=== PATIENT | female | born 1995 | race Caucasian/White ===

== ENCOUNTER 2016-04-17 13:05 | Emergency (ER) ==
--- NOTE | 2016-04-17 15:08 | PROVIDER DOCUMENTATION ---
[facility] General - General Source: patient - History of Present Illness-EENT General EENT Location: reports: nose, throat Quality of Pain: reports: aching Severity: reports: mild Onset/Duration: reports: 2 days ago Timing: reports: still present Prearrival Treatment: Initiated no prearrival treatment Associated Symptoms: reports: nasal congestion/drainage, sore throat Similar Symptoms Previously?: Yes Recently seen or treated by another doctor?: No - Eyes Eye Problem Symptoms: denies: eye pain - Ears Ear Problem Symptoms: reports: none - Nose Nose Problem Symptoms: other (congestion) - Throat/Dental Throat/Dental Problem Symptoms: reports: sore throat <Gisela Younger - Last Filed: 04/17/16 15:04> <López Plaza - Last Filed: 04/17/16 15:23> - General Chief Complaint: Cold Symptoms Stated Complaint: COLD SX/"FEVER 99.3" Time Seen by Provider: 04/17/16 14:10 Allergies/Adverse Reactions: Patient Allergies Allergy/AdvReac Type Severity Reaction Status Date / Time No Known Allergies Allergy Verified 03/27/16 17:38 Home Medications: Home Medication List Medication Instructions Recorded Confirmed Last Taken Type Cyclobenzaprine [Flexeril] 10 mg PO TID #20 tablet 03/27/16 Unknown Rx Meloxicam [Mobic] 7.5 mg PO DAILY PRN PRN #15 tablet 03/27/16 Unknown Rx Amoxicillin [Amoxil] 500 mg PO BID #10 capsule 04/17/16 Unknown Rx Guaifenesin/D-Methorphan Hb/PE 1 each PO Q6-8H PRN PRN #14 tablet 04/17/16 Unknown Rx [Deconex Dmx Tablet] - History of Present Illness-[facility] General Nature of Presenting Problem: Pt is 21 y/o F presents to the ED with sinus congestion and sore throat. Pt denies F. Pt states symptoms started 2 days ago. (Gisela Younger) Review of Systems - Adult - REVIEW OF SYSTEMS - ADULT Constitutional: denies: chills, fever Eyes: denies: blurred vision, double vision Ears, Nose, Mouth & Throat: reports: sinus problem (congestion), throat pain. denies: ear pain, nose pain Cardiovascular: denies: chest pain, heart murmur, irregular heart rate Respiratory: denies: cough, shortness of breath, wheezing Gastrointestinal: denies: abdominal pain, diarrhea, nausea, vomiting Genitourinary: denies: dysuria, hematuria Musculoskeletal: denies: bone pain, joint pain, neck pain Integumentary: denies: hives, itching Neurological: denies: dizziness/vertigo, headache/migraines Psychiatric: reports: no symptoms reported Endocrine: reports: no symptoms reported Hematologic/Lymphatic: reports: no symptoms reported Allergic/Immunologic: reports: no symptoms reported All Other Systems: Reviewed and Negative <Gisela Younger - Last Filed: 04/17/16 15:04> Past History - Adult - PAST MEDICAL HISTORY-ADULT Review of Records: reports: Nursing Assessment Review, Medications Reviewed, Social history reviewed & non-contributory. Major Childhood Illnesses: reports: denies history Cardiovascular: reports: denies history Respiratory: reports: denies history Gastrointestinal: reports: denies history Obstetrical/Gynecological: reports: denies history Genitourinary: reports: denies history Musculoskeletal: reports: denies history Neurological: reports: headaches/migraines, Seizures/Epilepsy Psychiatric: reports: anxiety Endocrine/Immune: reports: denies history Other Conditions: reports: denies history - PRIOR SURGERIES/PROCEDURES Surgical/Procedure History: reports: tonsillectomy, other (tubes in ears) - IMMUNIZATION STATUS Childhood Immunizations: See Nurse Assessment Flu Vaccine: See Nurse Assessment - FAMILY HISTORY Family History: reviewed, not pertinent - SOCIAL HISTORY Smoking: denies Substance Use: denies Living Situation: family <Velia Youngeromi - Last Filed: 04/17/16 15:04> Physical Exam- EENT - Physical Exam EENT Initial Vital Signs Reviewed: Yes General Appearance: appears well, alert, no apparent distress Eye Exam: bilateral eye: normal inspection, PERRL, EOMI Ear Exam: left ear: erythema ([place] ), bilateral ear: auricle normal, TM normal Nasal Exam: sinus tenderness Throat Exam: normal mouth inspection, pharynx normal Neck: non-tender, full range of motion, supple, normal inspection Respiratory: chest non-tender, lungs clear, normal breath sounds, no pleuratic chest pain, no respiratory distress, no accessory muscle use Cardiovascular: normal peripheral pulses, regular rate, rhythm, no edema, no gallop, no JVD, no murmur Abdominal Exam: normal bowel sounds, non tender, soft, no organomegaly, no pulsatile mass Lymphatic: no adenopathy Back Exam: normal inspection, no CVA tenderness, no vertebral tenderness Extremity: normal range of motion, non-tender, normal gait, normal inspection, no pedal edema, no calf tenderness, normal capillary refill Integumentary: normal color, normal turgor, warm/dry 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, grossly normal, no motor/sensory deficits Psych/Mental Status: normal mood/affect, normal thought content, normal thought process, oriented x 3 <Gisela Younger - Last Filed: 04/17/16 15:04> Progress <Gisela Younger - Last Filed: 04/17/16 15:04> <López Plaza - Last Filed: 04/17/16 15:23> - PLAN OF CARE/RESULTS Progress/Plan/Lab Results: Vital Signs - 24 hr 04/17/16 13:17 Temperature 98.5 F Pulse Rate 77 Respiratory 18 Rate Blood Pressure 118/67 O2 Sat by Pulse 99 Oximetry (Gisela Younger) Departure <Gisela Younger - Last Filed: 04/17/16 15:04> - Departure Time of Disposition Order: 15:16 Certified Medical Emergency: Urgent <López Plaza - Last Filed: 04/17/16 15:23> - Departure DIAGNOSIS: Otitis media Qualifiers: Otitis media type: in diseases classified elsewhere Laterality: left Qualified Code(s): H67.2 - Otitis media in diseases classified elsewhere, left ear Disposition: HOME 01 Condition: Good Additional Instructions: Take medication as prescribed. Follow up with your primary care provider. ED Follow Up Instructions: You have been treated by a care provider in the Emergency Department. These instructions are being provided to you so you can have an understanding of how to care for yourself upon discharge. Upon discharge from the Emergency Department, you are responsible for making arrangements for follow-up care by a physician of your choice. Take all prescribed medications as directed. Return to the Emergency Department immediately for any new or worsening symptoms. You may call the Physician Referral phone number at [phone] to obtain a list of Physicians who are taking new patients. Prescriptions: Amoxicillin [Amoxil] 500 mg PO BID #10 capsule Guaifenesin/D-Methorphan Hb/PE [Deconex Dmx Tablet] 1 each PO Q6-8H PRN PRN #14 tablet PRN Reason: Cough and congestion Attestation - Scribe Verification/Attestation Scribe:: Gisela Younger Acting as Scribe for:: López Plaza Scribe documention review:: This chart was documented by a scribe and accurately reflects the service the provider performed and the decisions made by the provider. <Gisela Younger - Last Filed: 04/17/16 15:04> - Physician/ LAURA Attestation Patient care was provided by Advanced Practice Provider:: Yes Advanced Practice Provider:: López Plaza Advanced Practice Provider documentation review:: The Mid-level provider documentation, treatment plan and medical decision making was reviewed by the physician who agrees with all treatment and medical decision making by the MLP. <López Plaza - Last Filed: 04/17/16 15:23> Physician Attestation
[2016-04-17 15:29] VITALS: BP 112/67
== END 2016-04-17 15:40 | disposition home or self-care (01) ==
LOC: P.ED 13:05
DX: H67.2 Otitis media in diseases classified elsewhere, left ear (principal); R09.81 Nasal congestion; J02.9 Acute pharyngitis, unspecified; R50.9 Fever, unspecified
CPT/HCPCS: 99282

== ENCOUNTER 2018-07-12 23:04 | Inpatient (IN) ==
[2018-07-13 00:02] LABS: INR 0.98; PROTIME 13.5 Seconds (11.0-16.0); PTT 30.9 Seconds (22.3-41.8)
[2018-07-13 00:03] LABS: BASO# 0.01 X1000 (0.0-0.2); HEMATOCRIT 37.3 % (37.0-47.0); HEMOGLOBIN 12.7 g/dL (12.0-16.0); IMM GRAN# 0.07 X1000 (0.0-0.04); IMM GRAN% 0.3 % (0.0-0.5); LYMPH# 0.67 X1000 (1.2-3.4); LYMPH% 3.1 % (20.5-51.1); MCH 31.1 PG (27-31); MCV 91.4 FL (81-99); MONO# 1.07 X1000 (0.11-0.59); MONO% 4.9 % (1.7-9.3); MPV 10.6 FL (7.4-10.4); NEUT# 20.03 X1000 (1.4-6.5); NEUT% 91.7 % (42.2-75.2); PLT 248 X1000 (130-400); RBC 4.08 XMIL (4.2-5.4); RDW 12.4 % (11.5-14.5); WBC 21.85 X1000 (4.8-10.8)
[2018-07-13 00:07] LABS: AGAP 14; ALBUMIN 3.6 g/dL (3.5-5.0); ALKALINE PHOSPHATASE 85 U/L (32-104); BUN 5 mg/dL (8-22); CALCIUM 8.5 mg/dL (8.8-10.2); CHLORIDE 101 mmol/L (98-107); CK PROFILE 20 U/L (24-173); COSMO 269; CREATININE 0.3 mg/dL (0.5-0.9); ESTIMATED GFR > 60; GLUCOSE 154 mg/dL (70-104); GOT 12 U/L (10-30); GPT 5 U/L (10-36); POTASSIUM 3.4 mmol/L (3.5-5.1); SODIUM 134 mmol/L (136-145); TCO2 19 mmol/L (25-35); TOTAL PROTEIN 6.3 g/dL (6.3-8.3)
[2018-07-13 00:27] LABS: BILIRUBIN URINE NEGATIVE (NEGATIVE); BLOOD URINE 1+ (NEGATIVE); CLARITY SL. CLOUDY (CLEAR); COLOR YELLOW; GLUCOSE URINE NEGATIVE (NEGATIVE); KETONE URINE 3+(Large) mg/dL (NEGATIVE); LEUKOCYTES URINE 1+ (NEGATIVE); NITRITE URINE NEGATIVE (NEGATIVE); PH URINE 6.5; PROTEIN URINE 1+(30 mg/dL) mg/dL (NEGATIVE); SP GRAVITY URINE 1.015; UROBILINOGEN URINE NORMAL
[2018-07-13 00:28] LABS: URINE WBC TNTC /HPF (<10)
[2018-07-13 00:30] LABS: URINE BACTERIA 2+ /HFP; URINE CAST NONE SEEN /LPF; URINE CRYSTAL NONE SEEN /HPF; URINE EPITHELIAL CELLS <10 /HPF (<10); URINE SOURCE CLEAN CATCH; URINE YEAST NONE SEEN /HPF
[2018-07-13] MEDS ORDERED: ROCEPHIN 1 GM in NS 50 ML IV ONE (00:50)
[2018-07-13] MEDS ORDERED: NS 1,000 ML IV ONE (00:51)
[2018-07-13] MEDS ORDERED: ZOFRAN IV PRN (00:51)
[2018-07-13] MEDS ORDERED: TORADOL IV PRN (00:51)
[2018-07-13] MEDS ORDERED: TYLENOL PO PRN ×2 (00:51→06:40)
[2018-07-13] MEDS ORDERED: NS 1,000 ML ONE (00:56)
--- NOTE | 2018-07-13 01:49 | PROVIDER DOCUMENTATION ---
This chart was entered by Elizabeth Thurston Scribe, acting as scribe for Rikki Stevens MD. HPI-Female /OB/Breast - General Chief Complaint: Back Pain Stated Complaint: 19 WKS ABD PAIN Time Seen by Provider: 07/12/18 23:23 Source: reports: patient Allergies/Adverse Reactions: Patient Allergies Allergy/AdvReac Type Severity Reaction Status Date / Time No Known Allergies Allergy Verified 10/19/16 08:52 Home Medications: Home Medication List Medication Instructions Recorded Confirmed Last Taken Type NK [No Home Medications] 07/12/18 07/12/18 Unknown History - History of Present Illness-Female /OB Nature of Presenting Problem: 23yof presents to ED cc fever, dysuria, lower abdominal pain and back pain for a few days. Pt reports she is 19 weeks and has seen OB, had U/S that confirmed IUP. Pt is non-toxic in appearance. Does patient report she is ?: Yes (19 weeks) Location of complaint: reports: other Radiation: reports: back Quality of Pain: reports: burning, cramping Onset/Duration: reports: 2 days ago Timing: reports: still present Context/Activities at Onset: reports: none Vaginal Symptoms: reports: no symptoms Vaginal Bleeding Amount: None Urinary Symptoms: reports: dysuria Related Symptoms: reports: no symptoms Leakage of Fluid: none Modifying Factors: worse with: urinating Similar Symptoms Previously?: No Recently seen or treated by another doctor?: No - LMP/ History Menstrual Status: currently LMP: 02/28/18 Review of Systems - Adult - REVIEW OF SYSTEMS - ADULT Constitutional: reports: see HPI, fever. denies: chills, fatique Eyes: reports: no symptoms reported Ears, Nose, Mouth & Throat: reports: no symptoms reported Cardiovascular: reports: no symptoms reported Respiratory: reports: no symptoms reported Gastrointestinal: reports: abdominal pain. denies: diarrhea, nausea, vomiting Genitourinary: reports: see HPI, dysuria. denies: hematuria, incontinence Musculoskeletal: reports: see HPI, back pain. denies: joint pain, neck pain Integumentary: reports: no symptoms reported Neurological: reports: no symptoms reported Psychiatric: reports: no symptoms reported Endocrine: reports: no symptoms reported Hematologic/Lymphatic: reports: no symptoms reported Allergic/Immunologic: reports: no symptoms reported All Other Systems: Reviewed and Negative Past History - Adult - PAST MEDICAL HISTORY-ADULT Review of Records: reports: Nursing Assessment Review, Medications Reviewed, Social history reviewed & non-contributory. Major Childhood Illnesses: reports: denies history Cardiovascular: reports: denies history Respiratory: reports: denies history Gastrointestinal: reports: denies history Obstetrical/Gynecological: reports: denies history Genitourinary: reports: denies history Musculoskeletal: reports: denies history Neurological: reports: headaches/migraines, Seizures/Epilepsy Psychiatric: reports: anxiety Endocrine/Immune: reports: denies history Other Conditions: reports: denies history - PRIOR SURGERIES/PROCEDURES Surgical/Procedure History: reports: tonsillectomy, other (tubes in ears; ingrown toenail removal) - IMMUNIZATION STATUS Childhood Immunizations: See Nurse Assessment Flu Vaccine: See Nurse Assessment - FAMILY HISTORY Family History: reviewed, not pertinent Physical Exam-General - PHYSICAL EXAM-ADULT Initial Vital Signs Reviewed: Yes - CONSTITUTIONAL General Appearance: appears well, alert, no apparent distress. negative: anxious, combative - EYES Eyes: PERRL/EOMI, pink conjunctivae. negative: photophobia - HEAD, EARS, NOSE, MOUTH & THROAT HENMT: moist mucous membranes, normal ENT inspection. negative: angioedema - NECK Neck: non-tender, full range of motion, supple, normal inspection. negative: Brudzinski's sign, carotid bruit, C-spine tenderness - RESPIRATORY Respiratory: chest non-tender, lungs clear, normal breath sounds, no pleuratic chest pain, no respiratory distress, no accessory muscle use. negative: crackles, rales, rhonchi - CARDIOVASCULAR Cardiovascular: normal peripheral pulses, regular rate, rhythm, no edema, no gallop, no JVD, no murmur. negative: bradycardia, tachycardia - GASTROINTESTINAL (ABDOMEN) Abdominal Exam: normal bowel sounds, non tender, soft, no organomegaly. negative: rigid, rebound, tenderness - LYMPHATIC Lymphatic: no adenopathy. negative: striations - MUSCULOSKELETAL Back Exam: normal inspection. negative: swelling Extremity: normal range of motion, normal inspection. negative: deformity - SKIN Integumentary: normal color, normal turgor, warm/dry. 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 negative: facial droop, focal weakness - PSYCHIATRIC Psych/Mental Status: normal mood/affect, normal thought content, normal thought process, oriented x 3. negative: anxious Progress - PLAN OF CARE/RESULTS Progress/Plan/Lab Results: Vital Signs - 8 hr 07/12/18 23:13 07/13/18 01:07 Temperature 100.1 F H 98 F Pulse Rate 111 H 98 H Respiratory Rate 20 Blood Pressure 111/73 109/71 O2 Sat by Pulse Oximetry 97 99 Laboratory Results - last 24 hr 07/12/18 07/12/18 07/12/18 23:23 23:25 23:25 WBC 21.85 H RBC 4.08 L Hgb 12.7 Hct 37.3 MCV 91.4 MCH 31.1 H MCHC 34.0 RDW Std Deviation 12.4 Plt Count 248 MPV 10.6 H Immature Gran % (Auto) 0.3 Neut % (Auto) 91.7 H Lymph % (Auto) 3.1 L Jennings % (Auto) 4.9 Eos % (Auto) 0.0 Baso % (Auto) 0.0 Immature Gran # (Auto) 0.07 H Neut # (Auto) 20.03 H Lymph # (Auto) 0.67 L Jennings # (Auto) 1.07 H Eos # (Auto) 0.00 Baso # (Auto) 0.01 Corrected WBC (Man) PT INR PTT (Actin FS) Sodium 134 L Potassium 3.4 L Chloride 101 Carbon Dioxide 19 L Anion Gap 14 BUN 5 L Creatinine 0.3 L Estimated GFR/1.73 m2 > 60 BUN/Creatinine Ratio 17 Glucose 154 H Calculated Osmolality 269 Calcium 8.5 L Total Bilirubin 0.30 AST 12 ALT 5 L Alkaline Phosphatase 85 Creatine Kinase 20 L Troponin T Total Protein 6.3 Albumin 3.6 Globulin 3.0 Albumin/Globulin Ratio 1.0 Plasma Lactate Urine Source CLEAN CATCH Urine Color YELLOW Urine Clarity SL. CLOUDY A Urine pH 6.5 Ur Specific [place] 1.015 Urine Protein 1+(30 mg/dL) A Urine Ketones 3+(Large) A Urine Blood 1+ A Urine Nitrite NEGATIVE Urine Bilirubin NEGATIVE Urine Urobilinogen NORMAL Urine Microscopic RBC 10-20 A Urine WBC 1+ A Urine Microscopic WBC TNTC A Ur Epithelial Cells <10 Urine Crystals NONE SEEN Urine Bacteria 2+ Urine Casts NONE SEEN Urine Yeast NONE SEEN Urine Glucose NEGATIVE 07/12/18 07/12/18 07/12/18 23:25 23:25 23:25 WBC Cancelled RBC Cancelled Hgb Cancelled Hct Cancelled MCV Cancelled MCH Cancelled MCHC Cancelled RDW Std Deviation Cancelled Plt Count Cancelled MPV Cancelled Immature Gran % (Auto) Cancelled Neut % (Auto) Cancelled Lymph % (Auto) Cancelled [place] % (Auto) Cancelled Eos % (Auto) Cancelled Baso % (Auto) Cancelled Immature Gran # (Auto) Cancelled Neut # (Auto) Cancelled Lymph # (Auto) Cancelled [place] # (Auto) Cancelled Eos # (Auto) Cancelled Baso # (Auto) Cancelled Corrected WBC (Man) Cancelled PT 13.5 INR 0.98 PTT (Actin FS) 30.9 Sodium Potassium Chloride Carbon Dioxide Anion Gap BUN Creatinine Estimated GFR/1.73 m2 BUN/Creatinine Ratio Glucose Calculated Osmolality Calcium Total Bilirubin AST ALT Alkaline Phosphatase Creatine Kinase Troponin T Total Protein Albumin Globulin Albumin/Globulin Ratio Plasma Lactate 1.5 Urine Source Urine Color Urine Clarity Urine pH Ur Specific [place] Urine Protein Urine Ketones Urine Blood Urine Nitrite Urine Bilirubin Urine Urobilinogen Urine Microscopic RBC Urine WBC Urine Microscopic WBC Ur Epithelial Cells Urine Crystals Urine Bacteria Urine Casts Urine Yeast Urine Glucose 07/12/18 23:25 WBC RBC Hgb Hct MCV MCH MCHC RDW Std Deviation Plt Count MPV Immature Gran % (Auto) Neut % (Auto) Lymph % (Auto) [place] % (Auto) Eos % (Auto) Baso % (Auto) Immature Gran # (Auto) Neut # (Auto) Lymph # (Auto) Jennings # (Auto) Eos # (Auto) Baso # (Auto) Corrected WBC (Man) PT INR PTT (Actin FS) Sodium Potassium Chloride Carbon Dioxide Anion Gap BUN Creatinine Estimated GFR/1.73 m2 BUN/Creatinine Ratio Glucose Calculated Osmolality Calcium Total Bilirubin AST ALT Alkaline Phosphatase Creatine Kinase Troponin T < 0.010 Total Protein Albumin Globulin Albumin/Globulin Ratio Plasma Lactate Urine Source Urine Color Urine Clarity Urine pH Ur Specific [place] Urine Protein Urine Ketones Urine Blood Urine Nitrite Urine Bilirubin Urine Urobilinogen Urine Microscopic RBC Urine WBC Urine Microscopic WBC Ur Epithelial Cells Urine Crystals Urine Bacteria Urine Casts Urine Yeast Urine Glucose Orders Category Date Time Status Admit - [facility] Routine AdmDCTranf 07/13/18 00:51 Active Activity - Up Ad Diana ORDERED Care 07/13/18 00:51 Active Call Admitting on Arrival AT ADMISSION Care 07/13/18 00:53 Active FHT [ Heart Tones] NOW Care 07/12/18 23:36 Active Notify MD of + Sepsis Screen NOW Care 07/12/18 23:33 Active Resuscitation Status Routine Care 07/13/18 00:51 Ordered Saline Loc DIRECTED Care 07/13/18 00:51 Active Vital Signs Order ROUTINE Care 07/13/18 00:51 Active Regular Diet Diet 07/13/18 00:54 Active BLOOD CULTURE [BLDCUL] Stat Lab 07/12/18 23:33 Ordered CBC WITH ELECTRONIC DIFF [HEME] Stat Lab 07/12/18 23:25 Completed CK PROFILE [SP CHEM] Stat Lab 07/12/18 23:25 Completed COMPREHENSIVE METABOLIC PANEL [CHEM] Stat Lab 07/12/18 23:25 Completed LACTATE, PLASMA [CHEM] Q3H Lab 07/12/18 23:25 Completed PROTIME WITH INR [COAG] Stat Lab 07/12/18 23:25 Completed PTT [COAG] Stat Lab 07/12/18 23:25 Completed TROPONIN T Stat Lab 07/12/18 23:[address] W/POSS RFLX CULT [URINALYSIS] Stat Lab 07/12/18 23:23 Completed URINE CULTURE [RM] Routine Lab 07/13/18 00:30 Ordered 0.9% Sodium Chloride Inj [Ns] 1,000 ml Med 07/13/18 00:56 Discontinued .ROUTE As directed 0.9% Sodium Chloride Inj [Ns] 1,000 ml Med 07/13/18 00:51 Active IV 100 mls/hr Acetaminophen [Tylenol] Med 07/13/18 00:51 Active 650 mg PO Q6H PRN PRN CefTRIAXONE [Rocephin] 1 gm Med 07/13/18 00:50 Discontinued 0.9% Sodium Chloride Inj [Ns] 50 ml IV NOW Ketorolac [Toradol] Med 07/13/18 00:51 Active 15 mg IV Q4H PRN PRN Morphine Med 07/13/18 00:51 Active 2 mg IV Q2H PRN PRN Ondansetron [Zofran] Med 07/13/18 00:51 Active 4 mg IV Q4H PRN PRN Transfer/Admit Order [TRANSFER] Routine Transfer 07/13/18 00:55 Ordered Result Diagrams: 07/12/18 23:25 07/12/18 23:25 - CONSULTS/PCP/HOSPITALIST Notification #1 *Consult/PCP/Hospitalist*: Dr. Stoner Time Discussed: 00:50 Consult Disposition: Admit (agreed to admit) Departure - Departure Date of Disposition Decision: 07/12/18 Time of Disposition Decision: 23:33 DIAGNOSIS: Pyelonephritis Disposition: ADMITTED INPATIENT 09 Certified Medical Emergency: Emergent Condition: Stable Referrals and Follow-Ups: Erin Pardo MD [Primary Care Provider] - - Critical Care Note This patient required my direct & personal management of CC.: No Attestation - Physician/ LAURA Attestation Patient care was provided by Advanced Practice Provider:: No The physician spent face to face time with patient:: Yes Advanced Practice Provider documentation review:: Supervising physician onsite and consulted in the evaluation and care of this patient. The physician did have a face to face encounter with the patient. This chart was documented by the indicated scribe, (Elizabeth Thurston Scribe) and accurately reflects the services I performed and decisions made by me, Rikki Stevens MD, as attested by the provider's signature.
[2018-07-13] MEDS: MORPHINE IV PRN ×2 (03:07→07:34)
[2018-07-13] MEDS: ZOSYN 3.375 GM in NS 50 ML IV SCH ×3 (07:03→19:03)
[2018-07-13] MEDS: ZOFRAN IV PRN ×4 (07:34→23:09)
[2018-07-13 08:43] LABS: BASO# 0.01 X1000 (0.0-0.2); HEMATOCRIT 32.9 % (37.0-47.0); HEMOGLOBIN 11.2 g/dL (12.0-16.0); IMM GRAN# 0.06 X1000 (0.0-0.04); IMM GRAN% 0.3 % (0.0-0.5); LYMPH# 0.97 X1000 (1.2-3.4); LYMPH% 4.3 % (20.5-51.1); MCH 31.5 PG (27-31); MCV 92.4 FL (81-99); MONO# 1.33 X1000 (0.11-0.59); NEUT# 19.94 X1000 (1.4-6.5); NEUT% 89.4 % (42.2-75.2); PLT 226 X1000 (130-400); RBC 3.56 XMIL (4.2-5.4); RDW 12.5 % (11.5-14.5); WBC 22.31 X1000 (4.8-10.8)
[2018-07-13 09:09] LABS: AGAP 15; ALBUMIN 3.1 g/dL (3.5-5.0); ALKALINE PHOSPHATASE 94 U/L (32-104); BUN 2 mg/dL (8-22); CHLORIDE 101 mmol/L (98-107); COSMO 271; CREATININE 0.4 mg/dL (0.5-0.9); ESTIMATED GFR > 60; GLUCOSE 208 mg/dL (70-104); GOT 15 U/L (10-30); GPT 6 U/L (10-36); POTASSIUM 3.3 mmol/L (3.5-5.1); SODIUM 134 mmol/L (136-145); TCO2 18 mmol/L (25-35)
[2018-07-13] MEDS ORDERED: KLOR-CON PO ONE (09:12)
[2018-07-13 09:50] LABS: ANISOCYTOSIS 1+; LYMPHS 5 % (21-51); MONO 3 % (1-9); SEGS 92 % (42-75)
[2018-07-13] MEDS: DILAUDID IV PRN ×4 (11:13→23:08)
--- NOTE | 2018-07-13 12:53 | HISTORY AND PHYSICAL ---
CHIEF COMPLAINT: Dysuria, low back pain, low abdominal pain. HISTORY OF PRESENT ILLNESS: This is a 23-year-old female who is 19 weeks , who presents to the emergency room complaining of fever, dysuria, low abdomen and back pain. She was known Klebsiella pneumoniae UTI from separate specimens 06/14/2018 and 06/19/2018 for which she was treated. She has had prior antibiotic coverage of nitrofurantoin which looks like she filled on 06/23/2018. Of note, she denies any change in symptoms with antibiotics. She continued with low- grade fever. She does report a history of frequent urinary tract infections. She did undergo a renal ultrasound during the ER visit on the which revealed a normal ultrasound, no renal stones, as well as an OB ultrasound that showed intrauterine with an estimated gestational age of 16 weeks and 1 day. PAST MEDICAL HISTORY: 1. Frequent urinary tract infections. 2. Migraine headaches. 3. Possible seizure. PAST SURGICAL HISTORY: 1. Tonsillectomy. 2. Bilateral tubes in her ears. SOCIAL HISTORY: She smokes about a half a pack a day. She denies alcohol or illicit drug use. ALLERGIES: No known drug allergies. HOME MEDICATIONS: She denies. REVIEW OF SYSTEMS: Discussed with patient with pertinent positives stated in the HPI. She denied any syncope, dizziness, chest pain, palpitations, shortness of breath, cough, any chills, any night sweats, any nausea, vomiting, diarrhea, constipation, black or bloody vomitus or stools, any gross hematuria or incontinence. PHYSICAL EXAMINATION: GENERAL: This is a 23-year-old female who is sitting up in the bed in no distress. VITAL SIGNS: Blood pressure is 117/65 with a heart rate ranging 110 to 122, respirations are 18, temperature is 99.2 degrees oral with room air saturations of 97%. EYES: Pupils equal, round, react to light. EOMs are intact. Sclerae anicteric. HEENT: Head is normocephalic, atraumatic. Mucous membranes are moist. NECK: Supple with trachea midline. She has no JVD. CARDIOVASCULAR: Regular rate and rhythm. S1 and S2 appreciated. She has no murmur. EXTREMITIES: She has no lower extremity edema. Calves are nontender bilateral with peripheral pulses palpable x4 extremities. GASTROINTESTINAL: Abdomen is soft, nontender, nondistended with bowel sounds in all 4 quadrants. GENITOURINARY: She does have some slight bilateral CVA tenderness. NEUROLOGIC: She is alert and oriented x3. SKIN: Warm and dry. LABORATORY DATA: WBC is 21.8 with hemoglobin 12.7, hematocrit 37.3, and platelets of 248,000. Sodium 134, potassium 3.4, BUN 5, creatinine 0.3, with a glucose of 154. Lactate is 1.5. Urinalysis is positive for too numerous to count microscopic white blood cells, 10 to 20 microscopic red blood cells, 2+ bacteria with 1+ protein. Urine culture and blood cultures are pending. ASSESSMENT AND PLAN: 1. Pyelonephritis. 2. Sepsis secondary to #1. 3. Recent Klebsiella pneumoniae urinary tract infection from cultures 06/14/2018 and 06/19/2018. 4. A 19-week intrauterine . 5. Deep venous thrombosis prophylaxis. We will use sequential compression devices. PLAN: Patient was admitted to the medical-surgical floor with gentle hydration as she has ruled in for sepsis. We will institute the sepsis protocol, start IV antibiotic coverage of Zosyn as recent Klebsiella UTIs were susceptible to Zosyn. She will be placed on telemetry. We will continue with heart tones every shift. Dr. Headley has been consulted. I did speak with her and updated. We did discuss the plan of care. She will follow with us, and we appreciate her expert opinion. Further treatments pending hospital course. Dictated by ALLISON Chang for Slade Hoffmann MD cc: ALLISON Chang MD
[2018-07-13] MEDS: NS 1,000 ML IV SCH ×2 (12:54→22:12)
--- NOTE | 2018-07-13 14:17 | HISTORY AND PHYSICAL ---
ADDENDUM: Patient seen and examined by myself. Full note dictated and discussed with nurse practitioner. Patient presented to the hospital with flank pain, nausea, and vomiting. It was noted the symptoms started approximately a day or 2 ago. She is currently 19 weeks . She has seen her OB. Denies any fevers or chills. Currently, patient is quite ill in appearance due to the pain. She is nauseated. We will continue pain medication as needed. Continue antibiotics. We will discuss with OB and will follow. cc: Slade Hoffmann MD
--- NOTE | 2018-07-14 01:43 | CONSULTATION ---
DATE OF CONSULTATION: 07/13/2018 HISTORY OF PRESENT ILLNESS: The patient is a 23-year-old, G1, P0, at approximately 19 weeks gestation who presented to [facility] Emergency Room with complaint of fever, dysuria, lower abdominal pain, and back pain. This current is being monitored by Dr. Erin Pardo, and patient reports a history of a prior UTI infection with current . She also reports compliance with p.o. antibiotics to treat urinary tract infection. Currently, patient denies nausea, vomiting, but admits to still having abdominal pain and back pain. Back pain mostly on the left lower side. OB consulted to monitor management and co-manage with hospitalist team. MEDICATIONS: vitamins. PAST MEDICAL HISTORY: Migraine, recurrent urinary tract infection, and asthma. PAST SURGICAL HISTORY: Bilateral ear tubes and tonsillectomy. SOCIAL HISTORY: Admits to positive tobacco use, half a pack per day. Denies alcohol or drug use. FAMILY HISTORY: Noncontributory. ALLERGIES: No known drug allergies. GYNECOLOGIC HISTORY: Menarche at age 11. Last menstrual period 03/11/2018. Positive STD exposure to chlamydia. OBSTETRICAL HISTORY: G1, P0. Denies history of miscarriage or . PHYSICAL EXAMINATION: Vital signs: Temperature 98.3 degrees Fahrenheit, pulse rate is 89, respiration rate 18, blood pressure 111/65, O2 saturation 99% on room air. General: No acute distress. Cardiovascular: Regular rate and rhythm. Positive S1, S2. Respiratory: Clear to auscultation bilaterally. Gastrointestinal: Abdomen is abdomen is soft, gravid, nontender to palpation. Musculoskeletal: Positive CVA tenderness bilaterally, increased tenderness in the left lower back. Extremities: Negative lower extremity edema. Negative calf tenderness. LAB: WBCs 22.31, hemoglobin 11.1, hematocrit 32.9, platelets 226,000. Creatinine 0.4, BUN/creatinine ratio 5. ASSESSMENT: Mrs. Torres is a 23-year-old, G1, P0 at approximately 19 weeks gestation, who was been admitted for pyelonephritis complicated by sepsis. PLAN: 1. Continue IV antibiotic therapy. Recent urine culture grew out Klebsiella pneumoniae with noted susceptibility to piperacillin/tazobactam. 2. Continue to monitor CBC with diff daily. 3. Continue DVT prophylaxis. 4. Monitor heart rate daily. 5. Recommend starting vitamins daily. 6. OB team will continue to follow with hospitalist team while patient is admitted inpatient status. KATIE
[2018-07-14] MEDS: ZOSYN 3.375 GM in NS 50 ML IV SCH ×4 (01:50→18:21)
[2018-07-14] MEDS: DILAUDID IV PRN ×5 (03:10→22:48)
[2018-07-14] MEDS: ZOFRAN IV PRN ×2 (03:10→22:47)
[2018-07-14] MEDS: NS 1,000 ML IV SCH ×2 (06:02→12:40)
[2018-07-14 08:56] LABS: HEMOGLOBIN 10.4 g/dL (12.0-16.0); MCH 31.2 PG (27-31); MCHC 33.5 g/dL (33-37); MCV 93.1 FL (81-99); MPV 10.9 FL (7.4-10.4); RBC 3.33 XMIL (4.2-5.4); RDW 12.4 % (11.5-14.5); WBC 17.99 X1000 (4.8-10.8)
[2018-07-14 09:12] LABS: AGAP 11; ALBUMIN 2.9 g/dL (3.5-5.0); ALKALINE PHOSPHATASE 80 U/L (32-104); BUN 2 mg/dL (8-22); CHLORIDE 103 mmol/L (98-107); COSMO 266; CREATININE 0.3 mg/dL (0.5-0.9); ESTIMATED GFR > 60; GLUCOSE 102 mg/dL (70-104); GOT 10 U/L (10-30); GPT 5 U/L (10-36); POTASSIUM 3.3 mmol/L (3.5-5.1); SODIUM 135 mmol/L (136-145); TCO2 21 mmol/L (25-35); TOTAL PROTEIN 5.9 g/dL (6.3-8.3)
[2018-07-14] MEDS ORDERED: NS 50 ML ONE (18:14)
[2018-07-15] MEDS: NS 1,000 ML IV SCH ×2 (01:08→03:30)
[2018-07-15] MEDS: ZOSYN 3.375 GM in NS 50 ML IV SCH ×5 (01:08→23:19)
[2018-07-15] MEDS: DILAUDID IV PRN ×5 (02:30→23:17)
[2018-07-15] MEDS: ZOFRAN IV PRN ×5 (02:30→23:18)
--- NOTE | 2018-07-15 09:04 | OB/GYN PROGRESS NOTE ---
Progress Note OB - . Patient Problems: Current Active Problems Problem Status Onset Acute Pyelonephritis Acute OB Progress Note: Vital Signs - 24 hr 07/14/18 16:00 07/14/18 22:42 07/14/18 23:10 Temperature 98.1 F 98.5 F Pulse Rate 84 81 Respiratory Rate 16 18 Blood Pressure 109/60 110/60 O2 Sat by Pulse Oximetry 100 100 99 07/15/18 07:26 Temperature 97.8 F Pulse Rate 66 Respiratory Rate 18 Blood Pressure 99/57 O2 Sat by Pulse Oximetry 99 07/12/18 23:23 Urine Culture - Final Urine,Clean Catch Klebsiella Pneumoniae Laboratory Results - last 24 hr 07/14/18 08:39 Sodium 135 L Potassium 3.3 L Chloride 103 Carbon Dioxide 21 L Anion Gap 11 BUN 2 L Creatinine 0.3 L Estimated GFR/1.73 m2 > 60 BUN/Creatinine Ratio 7 Glucose 102 D Calculated Osmolality 266 Calcium 8.0 L Total Bilirubin 0.40 AST 10 ALT 5 L Alkaline Phosphatase 80 Total Protein 5.9 L Albumin 2.9 L Globulin 3.0 Albumin/Globulin Ratio 1.0 HPI: Pt seen and examined. Reports pain improved but still mild left CVA tenderness. Ambulating and urinating without difficulty. Tolerating regular diet. Denies fever/chills/nausea/vomiting. Reports good movement. Denies contractions/ leakage of fluid/ vaginal bleeding VS: Please see above, afebrile x 48 hrs GEN: NAD, resting comfortably in bed CV: RRR, +S1S2 RESP: CTA b/l ABD: gravid, soft, NTTP EXT: neg CT, neg edema LABS: Please see above, WBC trending down Urine Culture: Please see above ASSESSMENT: Mrs. Torres is a 23-year-old, G1, P0 at approximately 19 weeks g estation, who was been admitted for pyelonephritis complicated by sepsis. PLAN: --IV antibiotic therapy with Zosyn. Urine culture grew out Klebsiella pneumoniae with noted susceptibility to Zosyn. Pt afebrile for greater than 48 hrs. Consider discontinuing IV antibiotics and starting PO antibiotic. Noted susceptibility to 1st Gen Cephalosporins. Consider starting Keflex 500 mg PO BID x 10 days --Repeat CBC with diff today to assess for WBC downward trend. --Continue DVT prophylaxis. --Monitor heart rate daily. --Recommend starting vitamins daily. --Consider d/c home secondary to afebrile greater than 48 hrs and pt tolerating PO diet. Recommend starting/continuing PO antibiotics x 10 days. --Pt counseled on the importance of suppressive antibiotic regimen for the remainder of the . Advised to f/u with her OB provider, Dr. Pardo, for continued antibiotic therapy s/p 10 days of Keflex --OB team will continue to follow with hospitalist team while patient is admitted inpatient status
[2018-07-15 10:00] LABS: BASO# 0.01 X1000 (0.0-0.2); BASO% 0.1 % (0.0-0.8); EOS# 0.03 X1000 (0.0-0.7); EOS% 0.4 % (0.0-10.0); HEMATOCRIT 26.6 % (37.0-47.0); HEMOGLOBIN 8.8 g/dL (12.0-16.0); IMM GRAN# 0.01 X1000 (0.0-0.04); IMM GRAN% 0.1 % (0.0-0.5); LYMPH# 0.91 X1000 (1.2-3.4); MCH 30.9 PG (27-31); MCHC 33.1 g/dL (33-37); MCV 93.3 FL (81-99); MONO# 0.59 X1000 (0.11-0.59); MONO% 7.8 % (1.7-9.3); MPV 10.9 FL (7.4-10.4); NEUT# 6.04 X1000 (1.4-6.5); NEUT% 79.6 % (42.2-75.2); PLT 177 X1000 (130-400); RBC 2.85 XMIL (4.2-5.4); RDW 12.3 % (11.5-14.5); WBC 7.59 X1000 (4.8-10.8)
[2018-07-15] MEDS: PRECARE PO SCH (10:29)
[2018-07-15 10:32] LABS: AGAP 11; ALBUMIN 2.6 g/dL (3.5-5.0); ALKALINE PHOSPHATASE 75 U/L (32-104); BUN 1 mg/dL (8-22); CALCIUM 7.9 mg/dL (8.8-10.2); CHLORIDE 106 mmol/L (98-107); COSMO 273; CREATININE 0.4 mg/dL (0.5-0.9); ESTIMATED GFR > 60; GLUCOSE 157 mg/dL (70-104); GOT 9 U/L (10-30); GPT 5 U/L (10-36); SODIUM 137 mmol/L (136-145); TCO2 21 mmol/L (25-35); TOTAL PROTEIN 5.2 g/dL (6.3-8.3)
--- NOTE | 2018-07-15 15:09 | PROGRESS NOTE ---
DATE: 07/15/2018 SUBJECTIVE: The patient notes she is starting to feel a little bit better. She is having less nausea. No vomiting. Still having some pain, but much improved. Denies any fevers or chills. OBJECTIVE: Temperature 98, pulse 100, respiratory 20, and BP stable.General: Patient is awake and alert. She is very pleasant to talk with. She is in no current respiratory distress. HEENT: Normocephalic. Neck: Supple. Cardiovascular: Regular rate. Chest: Clear. Abdomen: Soft, nondistended. Minimal flank pain. Extremities: Moves all extremities. Neurologic: No changes. ASSESSMENT: 1. Nausea and vomiting. 2. Abdominal pain. 3. Pyelonephritis. 4. First trimester . PLAN: We will continue patient in the hospital. Continue antibiotics. Hopefully, she will begin feeling better, and can discharge home this afternoon or tomorrow. We will discharge on Keflex 500 mg for 10 days. cc: Slade Hoffmann MD
[2018-07-16] MEDS: ZOSYN 3.375 GM in NS 50 ML IV SCH ×2 (01:59→06:07)
[2018-07-16] MEDS: ZOFRAN IV PRN (06:37)
[2018-07-16] MEDS: DILAUDID IV PRN (06:37)
[2018-07-16 07:27] VITALS: BP 113/66
[2018-07-16] MEDS: PRECARE PO SCH (08:28)
[2018-07-16] MEDS ORDERED: KEFLEX PO SCH (09:30)
[2018-07-16 11:10] LABS: BASO# 0.01 X1000 (0.0-0.2); BASO% 0.1 % (0.0-0.8); EOS# 0.05 X1000 (0.0-0.7); EOS% 0.6 % (0.0-10.0); HEMATOCRIT 29.3 % (37.0-47.0); HEMOGLOBIN 9.9 g/dL (12.0-16.0); IMM GRAN# 0.01 X1000 (0.0-0.04); IMM GRAN% 0.1 % (0.0-0.5); LYMPH# 1.15 X1000 (1.2-3.4); LYMPH% 12.9 % (20.5-51.1); MCH 31.2 PG (27-31); MCHC 33.8 g/dL (33-37); MCV 92.4 FL (81-99); MONO# 1.05 X1000 (0.11-0.59); MONO% 11.8 % (1.7-9.3); MPV 10.8 FL (7.4-10.4); NEUT# 6.63 X1000 (1.4-6.5); NEUT% 74.5 % (42.2-75.2); PLT 217 X1000 (130-400); RBC 3.17 XMIL (4.2-5.4); RDW 12.3 % (11.5-14.5)
--- NOTE | 2018-07-16 15:30 | DISCHARGE SUMMARY ---
ADMISSION DATE: 07/13/2018 DISCHARGE DATE: 07/16/2018 DISCHARGE DIAGNOSES: 1. Pyelonephritis. 2. First trimester . 3. Anemia, stable. 4. History of migraines. CONSULTATIONS: [facility]. PROCEDURES: None. BRIEF HOSPITAL COURSE: The patient is a 23-year-old female who presented to the hospital, treated in the usual fashion. She was noted to have nausea, vomiting, and early sepsis secondary to her pyelonephritis. Her urine grew Klebsiella which was sensitive to Keflex. Her white count which was elevated to 22 dropped down to 8. She was transitioned over to p.o. Keflex, continued to improve, and therefore will be discharged home. DISPOSITION: Patient will be discharged home. PHYSICAL EXAMINATION: General: Currently she is in no current distress. She is awake, alert. She is pleasant. HEENT: Normocephalic. Neck: Supple. CV: Regular rate. Chest: Clear. Abdomen: Soft. DISCHARGE MEDICATIONS: Patient be discharged home with Keflex for the next 10 days. No other changes were made on her home medications. Will continue vitamin. FOLLOW UP: She will follow up outpatient with OB of her choice. TIME SPENT: Greater than 30 minutes were spent in total care. cc: Slade Hoffmann MD
== END 2018-07-16 14:21 | disposition home or self-care (01) | DRG 831 ==
LOC: P.ED 23:04 → P.MEDSURG 07-13 02:19
PROVIDERS: ATTEND Family Medicine
CPT/HCPCS: 80053; 81001; 82550; 83605; 84484; 85025; 85027; 85610; 85730; 87040; 87077; 87088; 87186; 94760; 94761; 96361; 96365; 99284; A9270; J0696; J1170; J2270; J2405; J2543; J7030

== ENCOUNTER 2018-11-28 10:38 | Inpatient (IN) ==
[2018-11-28 11:08] LABS: URINE SOURCE VOIDED
[2018-11-28 11:11] LABS: BILIRUBIN URINE NEGATIVE (NEGATIVE); BLOOD URINE 4+ (NEGATIVE); CLARITY SL. CLOUDY (CLEAR); COLOR AMBER; GLUCOSE URINE NEGATIVE (NEGATIVE); KETONE URINE TRACE mg/dL (NEGATIVE); LEUKOCYTES URINE 2+ (NEGATIVE); NITRITE URINE NEGATIVE (NEGATIVE); PROTEIN URINE 1+(30 mg/dL) mg/dL (NEGATIVE); SP GRAVITY URINE 1.005; UROBILINOGEN URINE NORMAL
[2018-11-28 11:20] LABS: UR AMPHETAMINES QUAL NONE DETECTED (NONE DETECT); UR BARBITUATES QUAL NONE DETECTED (NONE DETECT); UR BENZODIAZEPIN QUAL NONE DETECTED (NONE DETECT); UR CANNABINOIDS QUAL NONE DETECTED (NONE DETECT); UR COCAINE QUAL NONE DETECTED (NONE DETECT); UR METHADONE QUAL NONE DETECTED (NONE DETECT); UR METHAMPHETAMINE QUAL NONE DETECTED (NONE DETECT); UR OPIATES QUAL NONE DETECTED (NONE DETECT); UR OXYCODONE QUAL NONE DETECTED (NONE DETECT); UR PCP QUAL NONE DETECTED (NONE DETECT); UR PROPOXYPHENE QUAL NONE DETECTED (NONE DETECT); UR TCA QUAL NONE DETECTED (NONE DETECT)
[2018-11-28] MEDS ORDERED: REGLAN PO ONE (11:26)
[2018-11-28] MEDS ORDERED: PEPCID IV PRN (11:26)
[2018-11-28] MEDS ORDERED: KEFZOL 1 GM/D5W 1 GM/50 ML IVPB IV PRN (11:26)
[2018-11-28] MEDS ORDERED: PEPCID PO PRN (11:26)
[2018-11-28] MEDS ORDERED: PEPCID PO ONE (11:26)
[2018-11-28] MEDS ORDERED: STADOL IV PRN (11:26)
[2018-11-28] MEDS ORDERED: ZOFRAN IV PRN (11:26)
[2018-11-28] MEDS ORDERED: PITOCIN 30 UNITS/NS 30 UNIT/500 ML IV.SOLN IV SCH ×2 (11:30→23:45)
[2018-11-28] MEDS ORDERED: SODIUM CHLORIDE 0.9% INJ SCH (11:30)
[2018-11-28] MEDS: LR 1,000 ML IV SCH ×4 (12:00→18:35)
[2018-11-28 12:24] LABS: BASO# 0.02 X1000 (0.0-0.2); BASO% 0.1 % (0.0-0.8); EOS# 0.02 X1000 (0.0-0.7); EOS% 0.1 % (0.0-10.0); HEMATOCRIT 37.7 % (37.0-47.0); HEMOGLOBIN 11.7 g/dL (12.0-16.0); IMM GRAN# 0.04 X1000 (0.0-0.04); IMM GRAN% 0.3 % (0.0-0.5); LYMPH# 1.82 X1000 (1.2-3.4); MCH 27.5 PG (27-31); MCV 88.7 FL (81-99); MPV 11.7 FL (7.4-10.4); NEUT# 12.67 X1000 (1.4-6.5); NEUT% 83.5 % (42.2-75.2); PLT 326 X1000 (130-400); RBC 4.25 XMIL (4.2-5.4); WBC 15.17 X1000 (4.8-10.8)
[2018-11-28] MEDS ORDERED: BICITRA PO ONE (12:30)
[2018-11-28] MEDS ORDERED: FENTANYL IV ONE (12:30)
[2018-11-28] MEDS ORDERED: LR IV SCH (13:00)
[2018-11-28] MEDS ORDERED: REGLAN IV SCH (13:00)
[2018-11-28] MEDS ORDERED: FENTANYL-BUPIV-NS 2 MCG-0.1% 250 ML EPIDURAL SCH (13:00)
[2018-11-28] MEDS ORDERED: XYLOCAINE-MPF 1% INJ PRN (18:36)
[2018-11-28] MEDS ORDERED: HYDROXYZINE IM PRN (23:41)
[2018-11-28] MEDS ORDERED: M-M-R II VACCINE SUBQ ONE (23:41)
[2018-11-28] MEDS ORDERED: ATARAX PO PRN (23:41)
[2018-11-28] MEDS ORDERED: BENADRYL PO PRN (23:41)
[2018-11-28] MEDS ORDERED: PITOCIN IM PRN (23:41)
[2018-11-28] MEDS ORDERED: PERI MEDS (DERMOPLAST/NUPERCAINAL/TUCKS) MISC PRN (23:41)
[2018-11-28] MEDS ORDERED: BENADRYL IV PRN (23:41)
[2018-11-28] MEDS ORDERED: AMBIEN PO PRN (23:41)
[2018-11-28] MEDS ORDERED: CYTOTEC PO PRN (23:41)
[2018-11-28] MEDS ORDERED: BOOSTRIX VACCINE IM ONE (23:41)
[2018-11-28] MEDS ORDERED: PITOCIN 20 UNITS/NS 20 UNITS/1,000 ML IV.SOLN IV SCH (23:45)
--- NOTE | 2018-11-29 01:40 | OPERATIVE NOTE ---
PROCEDURE DATE: 11/28/2018 PROCEDURES: 1. Normal spontaneous vaginal delivery. 2. Repair of periurethral laceration. PREPROCEDURE DIAGNOSES: 1. Primigravida. 2. Term . 3. Labor. PROCEDURE NARRATIVE: The patient presented to Labor and delivery 3 cm dilated. Amniotomy was performed. Epidural was performed. She progressed normally through 1st stage of labor, at 2nd stage of labor she Valsalva'd for approximately 1 hour and delivered over a primary periurethral laceration a live-born male, handed to the maternal abdomen. The cord was clamped x2 and cut. The placenta delivered intact with 3 vessel cord spontaneously. The periurethral tear is repaired with 3-0 Vicryl on an SH. 's of 8 and 9, weight is 6 pounds 12 ounces.
[2018-11-29] MEDS: MOTRIN PO PRN ×3 (01:52→20:41)
[2018-11-29 06:29] LABS: BASO# 0.01 X1000 (0.0-0.2); BASO% 0.1 % (0.0-0.8); HEMATOCRIT 28.1 % (37.0-47.0); HEMOGLOBIN 8.6 g/dL (12.0-16.0); IMM GRAN# 0.04 X1000 (0.0-0.04); IMM GRAN% 0.2 % (0.0-0.5); LYMPH# 1.64 X1000 (1.2-3.4); LYMPH% 9.2 % (20.5-51.1); MCH 27.7 PG (27-31); MCHC 30.6 g/dL (33-37); MCV 90.4 FL (81-99); MONO# 1.09 X1000 (0.11-0.59); MONO% 6.1 % (1.7-9.3); MPV 11.5 FL (7.4-10.4); NEUT# 14.97 X1000 (1.4-6.5); NEUT% 84.4 % (42.2-75.2); PLT 271 X1000 (130-400); RBC 3.11 XMIL (4.2-5.4); RDW 14.1 % (11.5-14.5); WBC 17.75 X1000 (4.8-10.8)
--- NOTE | 2018-11-29 07:29 | HISTORY AND PHYSICAL ---
HISTORY OF PRESENT ILLNESS: The patient is a 23-year-old, 1, para 0, at 39 and 1/7 weeks gestation by second trimester ultrasound, inconsistent with her LMP, presented in labor. is complicated by history of Chlamydia, depression, anxiety disorder, and migraine headaches. The patient presented at home with contractions building in intensity until she rated 10/10, and presented to the Labor and Delivery Suite. PREVIOUS MEDICAL HISTORY: Depression, anxiety disorder, migraine headaches. Previous medical history also includes a history of pyelonephritis and Chlamydia. SOCIAL HISTORY: Positive for smoking. ALLERGIES: None. MEDICINES: vitamins, Zoloft. FAMILY HISTORY: Noncontributory. PAST SURGICAL HISTORY: Tonsillectomy and ear tubes as a child. PHYSICAL EXAMINATION: GENERAL: This is a well-developed, well-nourished woman in acute pain from labor. LUNGS: Clear. HEART: Regular rate and rhythm. ABDOMEN: Gravid. EXTREMITIES: Without clubbing, cyanosis, edema. PELVIC: Consistent with 3 cm, 80 per RN. ASSESSMENT: 1. A 23-year-old, 1, para 0, in labor. 2. Group B strep negative, A positive, hemoglobin 11.7. 3. Plan labor, epidural, amniotomy. 4. Estimated weight is 3300. 5. Anticipate vaginal delivery.
--- NOTE | 2018-11-29 07:36 | OB/GYN PROGRESS NOTE ---
Progress Note OB - . OB Progress Note: Vital Signs - 24 hr 11/28/18 10:20 11/28/18 10:45 11/28/18 17:00 Temperature 97.9 F 99.3 F Pulse Rate 77 67 60 Respiratory Rate 18 22 20 Blood Pressure 147/93 112/63 115/61 Blood Pressure [Right Arm] O2 Sat by Pulse Oximetry 99 99 98 11/28/18 23:45 11/28/18 23:55 11/29/18 00:00 Temperature 97.5 F L 97.5 F L Pulse Rate 98 H 83 79 Respiratory Rate 20 20 18 Blood Pressure 164/65 141/79 Blood Pressure [Right Arm] 164/65 134/77 O2 Sat by Pulse Oximetry 100 100 11/29/18 00:05 11/29/18 00:15 11/29/18 00:25 Temperature Pulse Rate 79 71 66 Respiratory Rate 18 18 18 Blood Pressure Blood Pressure [Right Arm] 141/79 137/76 130/75 O2 Sat by Pulse Oximetry 100 100 100 11/29/18 00:35 11/29/18 00:45 11/29/18 04:00 Temperature 97 F L Pulse Rate 68 68 75 Respiratory Rate 18 18 18 Blood Pressure 140/82 115/58 Blood Pressure [Right Arm] 145/76 140/82 O2 Sat by Pulse Oximetry 99 99 Laboratory Results - last 24 hr 11/28/18 11/28/18 11/28/18 10:45 11:05 11:50 WBC RBC Hgb Hct MCV MCH MCHC RDW Std Deviation Plt Count MPV Immature Gran % (Auto) Neut % (Auto) Lymph % (Auto) [place] % (Auto) Eos % (Auto) Baso % (Auto) Immature Gran # (Auto) Neut # (Auto) Lymph # (Auto) [place] # (Auto) Eos # (Auto) Baso # (Auto) Urine Source VOIDED Urine Color [place] Urine Clarity SL. CLOUDY A Urine pH 7.0 Ur Specific [place] 1.005 Urine Protein 1+(30 mg/dL) A Urine Ketones TRACE Urine Blood 4+ Urine Nitrite NEGATIVE Urine Bilirubin NEGATIVE Urine Urobilinogen NORMAL Urine WBC 2+ A Urine Glucose NEGATIVE Urine Opiates Screen NONE DETECTED Ur Oxycodone Screen NONE DETECTED Urine Methadone Screen NONE DETECTED U Propoxyphene Qual NONE DETECTED Ur Barbituates Screen NONE DETECTED Ur Tricyclics Screen NONE DETECTED Ur Phencyclidine Scrn NONE DETECTED Ur Amphetamines Screen NONE DETECTED U Methamphetamines Scrn NONE DETECTED U Benzodiazepines Scrn NONE DETECTED Urine Cocaine Screen NONE DETECTED U Cannabinoids Screen NONE DETECTED RPR NON-REACTIVE 11/28/18 11/29/18 11:50 05:26 WBC 15.17 H 17.75 H RBC 4.25 3.11 L Hgb 11.7 L 8.6 L D Hct 37.7 28.1 L D MCV 88.7 90.4 MCH 27.5 27.7 MCHC 31.0 L 30.6 L RDW Std Deviation 14.0 14.1 Plt Count 326 271 MPV 11.7 H 11.5 H Immature Gran % (Auto) 0.3 0.2 Neut % (Auto) 83.5 H 84.4 H Lymph % (Auto) 12.0 L 9.2 L [place] % (Auto) 4.0 6.1 Eos % (Auto) 0.1 0.0 Baso % (Auto) 0.1 0.1 Immature Gran # (Auto) 0.04 0.04 Neut # (Auto) 12.67 H 14.97 H Lymph # (Auto) 1.82 1.64 [place] # (Auto) 0.60 H 1.09 H Eos # (Auto) 0.02 0.00 Baso # (Auto) 0.02 0.01 Urine Source Urine Color Urine Clarity Urine pH Ur Specific [place] Urine Protein Urine Ketones Urine Blood Urine Nitrite Urine Bilirubin Urine Urobilinogen Urine WBC Urine Glucose Urine Opiates Screen Ur Oxycodone Screen Urine Methadone Screen U Propoxyphene Qual Ur Barbituates Screen Ur Tricyclics Screen Ur Phencyclidine Scrn Ur Amphetamines Screen U Methamphetamines Scrn U Benzodiazepines Scrn Urine Cocaine Screen U Cannabinoids Screen RPR PP1 no cx s/nt -cce bottle hgb 8.6 down from 11.6 lochia nl home tomorrow ambulation discussed
[2018-11-29] MEDS: TYLENOL PO PRN (15:44)
[2018-11-29] MEDS: PERICOLACE PO SCH (20:35)
[2018-11-30] MEDS: MOTRIN PO PRN ×2 (04:19→17:53)
[2018-11-30] MEDS: FERROUS SULFATE PO SCH (08:37)
[2018-11-30] MEDS: TYLENOL PO PRN (08:37)
[2018-11-30] MEDS: PERICOLACE PO SCH (23:56)
[2018-12-01] MEDS: MOTRIN PO PRN (02:20)
[2018-12-01 07:41] VITALS: BP 136/71
[2018-12-01] MEDS: FERROUS SULFATE PO SCH (09:07)
[2018-12-01] MEDS ORDERED: PNEUMOVAX 23 IM ONE (09:15)
--- NOTE | 2018-12-01 14:54 | DISCHARGE SUMMARY ---
ADMISSION DATE: 11/28/2018 DISCHARGE DATE: 12/01/2018 ADMITTING DIAGNOSIS: 1. at 39 and 1/7 weeks gestation. 2. Primigravida. 3. Labor. DISCHARGE DIAGNOSIS: 1. at 39 and 1/7 weeks gestation. 2. Primigravida. 3. Labor. 4. Liveborn delivered. BRIEF HOSPITAL COURSE: The patient is a 23-year-old 1, para 0 now 1, who presented at 39 and 1/7 weeks gestation in active phase of labor. complicated by depression anxiety disorder, history of Chlamydia. She made normal progress through labor from 3 cm dilated. Amniotomy was performed. Epidural performed. She progressed to 2nd stage for approximately 1 hour and delivered over a periurethral tear. Liveborn . Please see separate delivery note. course was uncomplicated. day #1, she is afebrile with stable vital signs. She is ambulating, voiding, tolerating regular diet. Hemoglobin 8.6, down from 11.7. On day #2, she is ambulating, voiding, tolerating regular diet. Vital signs stable, afebrile, and discharged home in stable condition. She is asked to follow up in the office in 6 weeks. Call the office for pain, fever greater than 100.4, abnormal vaginal bleeding. Maintain pelvic rest and regular diet. Continue vitamins and iron. A prescription for Motrin provided.
== END 2018-12-01 11:50 | disposition home or self-care (01) | DRG 807 ==
LOC: P.OPLD 10:38 → P.LD 10:39
PROVIDERS: ADMIT Obstetrics & Gynecology; ATTEND Obstetrics & Gynecology